=== PATIENT | female | born 1970 | race Caucasian/White ===

== ENCOUNTER → 2016-08-25 | Outpatient (CLI) | payer BC ==
[~2016-08-25] MED LIST: CEFD300C PO; DOCU100C37 PO; FERR-74 PO; HYDR-3816 PO; IBUP-1773 PO; SIME80TA16 PO; ZOLP5TAB PO
--- OUTSIDE RECORDS SUMMARY | 2016-08-25 08:25 | XMS REPORT | Continuity of Care Document ---
Author Author [facility] Organization [facility] Address Unknown Phone Unavailable Allergies Active Description Code Type Severity Reaction Onset Reported/Identified Relationship to Patient Clinical Status Yes No Known Drug Allergies [id number] Drug Allergy Unknown N/ A 10/09/2008 Medications Problems Date Dx Coded Attending Type Code Diagnosis Diagnosed By 07/18/2013 ALISON MOTA, AZEB Reilly Ot 473.9 07/18/2013 ALISON MOTA, AZEB Reilly Ot 780.4 07/18/2013 AZEB ROSAS MD Ot 782.0 10/12/2014 Ot V76.12 06/03/2015 KEHINDE MOTA, MONICO Ledezma Ot Z12.31 06/04/2015 KEHINDE MOTA, MONICO Ledezma Ot Z12.31 06/13/2015 MONICO BUSBY MD Ot Z12.31 06/17/2015 MONICO BUSBY MD Ot Z12.31 06/19/2015 FENECH DO, RONALD S Ot N92.0 07/02/2015 FENECH DO, RONALD S Ot N92.0 07/10/2015 FENECH DO, RONALD S Ot N92.0 07/23/2015 Ot V76.12 07/23/2015 MONICO BUSBY MD Ot Z12.31 08/10/2015 FENECH DO, RONALD S Ot D25.1 08/10/2015 FENECH DO, RONALD S Ot D25.9 08/10/2015 FENECH DO, RONALD S Ot N80.0 08/10/2015 FENECH DO, RONALD S Ot N83.0 08/10/2015 FENECH DO, RONALD S Ot N85.2 08/10/2015 FENECH DO, RONALD S Ot N92.0 08/26/2015 FENECH DO, RONALD S Ot D25.9 08/26/2015 FENECH DO, RONALD S Ot N93.9 08/26/2015 FENECH DO, RONALD S Ot Z01.812 08/26/2015 RONALD LAI DO Ot Z11.2 09/02/2015 MONICO BUSBY MD Ot Z12.31 09/02/2015 Ot V76.12 09/02/2015 MONICO BUSBY MD Ot Z12.31 09/23/2015 MONICO BUSBY MD Ot Z12.31 Procedures Results Encounters ACCT No. Visit Date/Time Discharge Status Pt. Type Provider Facility Loc./Unit Complaint [id number] 08/09/2015 06:15:00 2015 11:35:00 DIS Outpatient RONALD LAI DO [facility] SDC [id number] 05/30/2015 09:18:00 2014 23:59:59 CLS Outpatient MONICO BUSBY MD [facility] RAD [id number] 07/18/2013 10:55:00 2013 13:21:00 DIS Emergency AZEB ROSAS MD [facility] ER [id number] 08/05/2015 08:02:00 ACT Outpatient RONALD LAI DO [facility] PREOP [id number] 06/17/2015 13:03:00 ACT Outpatient RONALD LAI DO [facility] RAD [id number] 08/15/2012 09:03:00 Document Registration
--- NOTE | 2016-08-26 20:15 | Diagnostic Imaging Report ---
Bilateral screening mammogram The current study was also evaluated with a Computer Aided Detection (CAD) system. Indication: Screening. No current complaints stated on the questionnaire. COMPARISON: 06/26/15. FINDINGS: The breasts are composed of heterogeneously dense parenchyma which may decrease mammographic sensitivity. There are benign-appearing calcifications seen. Allowing for technique and positional differences, no suspicious change is seen. IMPRESSION: No significant change. ACR BI-RADS Category 2: Benign findings. Result letter will be mailed to the patient. Note: At least 10% of breast cancer is not imaged by mammography. Dictated by: Dictated on workstation # [id number]
== END ==
LOC: RAD 08:21
PROVIDERS: ATTEND Obstetrics & Gynecology
DX: Z12.31 Encounter for screening mammogram for malignant neoplasm of breast (principal)
CPT/HCPCS: 77067

== ENCOUNTER → 2017-09-24 | Outpatient (CLI) | payer BC ==
[~2017-09-24] MED LIST changes: -FERR-74 PO; +FERR325T18 PO; +HYDR-34 PO; -HYDR-3816 PO
--- NOTE | 2017-09-24 13:31 | Diagnostic Imaging Report ---
INDICATION: Routine screening. The current study was also evaluated with a Computer Aided Detection (CAD) system. Comparison is made with prior studies from 08/25/2016 and 05/30/2015. FINDINGS: Both breasts do show moderate parenchymal heterogeneity and increased density, limiting the sensitivity of mammography. There are scattered benign-appearing calcifications throughout both breasts. No discrete mass or malignant-appearing microcalcifications are seen. The axillae are unremarkable. IMPRESSION: No mammographic features suspicious for malignancy are identified. ACR BI-RADS Category 2: Benign findings. Result letter will be mailed to the patient. Note: At least 10% of breast cancer is not imaged by mammography. Dictated by: Dictated on workstation # [id number]
== END ==
LOC: RAD 09:50
PROVIDERS: ATTEND Obstetrics & Gynecology
DX: Z12.31 Encounter for screening mammogram for malignant neoplasm of breast (principal)
CPT/HCPCS: 77067

== ENCOUNTER → 2018-11-14 | Outpatient (CLI) | payer BC ==
--- NOTE | 2018-11-14 10:32 | Diagnostic Imaging Report ---
INDICATION: Routine screening. Comparison is made with prior mammograms 09/24/2017 and 08/25/2016. 2-D and 3-D bilateral screening mammography was performed with CAD. The current study was also evaluated with a Computer Aided Detection (CAD) system. FINDINGS: Both breasts remain heterogeneously dense, limiting the sensitivity of mammography. There are scattered benign-appearing calcifications bilaterally. No dominant mass or malignant-appearing microcalcifications are seen. Axillae are unremarkable. IMPRESSION: No mammographic features suspicious for malignancy are identified. ACR BI-RADS Category 2: Benign findings. Result letter will be mailed to the patient. Note: At least 10% of breast cancer is not imaged by mammography. Dictated by: Dictated on workstation # [id number]
== END ==
LOC: RAD 08:10
PROVIDERS: ATTEND Obstetrics & Gynecology
DX: Z12.31 Encounter for screening mammogram for malignant neoplasm of breast (principal)
CPT/HCPCS: 77067

== ENCOUNTER → 2019-11-22 | Outpatient (CLI) | payer BC ==
--- NOTE | 2019-11-22 13:23 | Diagnostic Imaging Report ---
INDICATION: Routine screening. COMPARISON: 11/14/2018 and 09/24/2017. TECHNIQUE: 2D and 3D bilateral screening mammography was performed with CAD. FINDINGS: Both breasts remain heterogeneously dense, limiting the sensitivity of mammography. There are scattered benign calcifications in both breasts. No dominant mass or malignant appearing microcalcifications are seen. The axillae are unremarkable. IMPRESSION: No mammographic features suspicious for malignancy are identified. ACR BI-RADS Category 2: Benign findings. Result letter will be mailed to the patient. Note: At least 10% of breast cancer is not imaged by mammography. Dictated by: Dictated on workstation # [id number]
== END ==
LOC: RAD 09:34
PROVIDERS: ATTEND Obstetrics & Gynecology
DX: Z12.31 Encounter for screening mammogram for malignant neoplasm of breast (principal)
CPT/HCPCS: 77063; 77067

== ENCOUNTER → 2021-01-13 | Outpatient (CLI) | payer BC ==
--- NOTE | 2021-01-13 12:26 | Diagnostic Imaging Report ---
Indication: 2-D and 3-D digital screening with CAD. COMPARISON: 10/2019, 10/2018 and 08/2017 FINDINGS: There are scattered fibroglandular densities in the breast with no mass or architectural distortion, spiculated lesion, suspicious calcifications or interval change is identified. IMPRESSION: Stable negative mammograms BI-RADS Category 1 ACR BI-RADS Category 1: Negative. Result letter will be mailed to the patient. Note: At least 10% of breast cancer is not imaged by mammography. Dictated by: Dictated on workstation # [id number]
== END ==
LOC: RAD 10:15
PROVIDERS: ATTEND Obstetrics & Gynecology
DX: Z12.31 Encounter for screening mammogram for malignant neoplasm of breast (principal)
CPT/HCPCS: 77063; 77067

== ENCOUNTER → 2022-05-14 | Outpatient (CLI) | payer BC ==
--- NOTE | 2022-05-14 14:59 | Diagnostic Imaging Report ---
Indication: Routine screening. Comparison is made with prior mammograms 01/13/2021 and 11/22/2019. 2-D and 3-D bilateral screening mammography was performed with CAD. Both breasts are heterogeneously dense, limiting the sensitivity of mammography. The parenchymal pattern is stable. No mass or malignant-appearing microcalcifications are seen. There are scattered benign calcifications. Axillae are unremarkable. IMPRESSION: BI-RADS Category 2 No mammographic features suspicious for malignancy are identified. ACR BI-RADS Category 2: Benign findings. Result letter will be mailed to the patient. Note: At least 10% of breast cancer is not imaged by mammography. Dictated by: Dictated on workstation # [id number]
== END ==
LOC: RAD 11:13
PROVIDERS: ATTEND Obstetrics & Gynecology
DX: Z12.31 Encounter for screening mammogram for malignant neoplasm of breast (principal)
CPT/HCPCS: 77063; 77067

== ENCOUNTER 2022-06-30 05:39 | Outpatient (CLI) | payer BC ==
[~2022-06-30] VITALS: Ht 162.6 cm; Wt 81.1 kg
[2022-07-02] MEDS ORDERED: ASCO100024 PO (10:06)
[2022-07-02] MEDS ORDERED: CHOL200074 PO (10:06)
[2022-07-02] MEDS ORDERED: ESTR0.9T PO (10:06)
== END 2022-07-02 10:29 | disposition home or self-care (01) ==
LOC: PREOP 05:39
PROVIDERS: ATTEND Surgery
DX: Z01.818 Encounter for other preprocedural examination (principal)

== ENCOUNTER 2022-07-06 08:28 | Day surgery (SDC) | payer BC ==
[~2022-07-06] VITALS: Ht 163 cm; Wt 81.1 kg
[~2022-07-06 08:28] MED LIST changes: +ASCO100024 PO; +CHOL200074 PO; +ESTR0.9T PO
[2022-07-06] MEDS ORDERED: LACTATED RINGERS 1,000 ML IV STA (08:30)
[2022-07-06 08:45] VITALS: BP 119/96
[2022-07-06] MEDS ORDERED: PROPOFOL INJECTION 50 ML IV ONE (09:41)
[2022-07-06 09:50] VITALS: BP 133/68
--- NOTE | 2022-07-06 09:51 | Progress Note-Post Operative ---
Post-Operative Progess Note Surgeon (s)/Flight Surveyor (s) Surgeon SEEMA GUZMAN DO Flight Surveyor: ADÁN Thacker Pre-Operative Diagnosis screening colon Post-Operative Diagnosis Int hemorrhoids Procedure & Operative Findings Date of Procedure 07/06/22 Procedure Performed/Findings Colonoscopy PROCEDURE NOTE: After informed consent was obtained, the patient was brought to the endoscopy suite, placed in bed in left lateral decubitus position. She was administered IV sedation by the [employer]LECTRO[employer]NER [employer] FINISHER who then monitored her vitals the entire time, heart rate, blood pressure and pulse ox and the scope was inserted, pushed all the way to about 150 cm and pushed into the cecum, took a picture of appendiceal orifice and noted the ileocecal valve. Then slowly withdrew the scope insufflating to look circumferentially at the alejandra starting in the cecum, up the ascending colon to the hepatic flexure, then down the transverse colon, splenic flexure, into the descending colon down in the sigmoid and then into the rectal vault and retroflexed the scope. Took picture of the internal hemorrhoids. The patient tolerated the procedure. She was recovered in endoscopy suite. Recommended for repeat colonoscopy in 10 years. Anesthesia Type IV sedation by [employer] FIN[employer]ER Estimated Blood Loss Estimated blood loss (mL): none Specimens/Packing Specimens Removed none SEEMA GUZMAN DO Jul 06, 2022 09:51
--- NOTE | 2022-07-06 09:52 | Endoscopy Discharge Instruct ---
Endo Procedure/Findings Findings 1.: Internal Hemorrhoids Discharge Instructions - Activity: You might feel a little sleepy until tomorrow. This is due to the me dicine you received to relax you. Until tomorrow, you should: NOT drive a car, operate machinery or power tools. NOT drink any alcoholic beverages. NOT make any important decisions or sign importortant papers. Do not return to work until tomorrow, unless otherwise instructed. Resume previous activities tomorrow. Diet: Start by taking liquids. If you tolerate liquids, advance to solid food. 1.: Colonscopy in 10 years Notify Physician - If you experience excessive bleeding, unusual abdominal pain, fever, or chest pain, contact your doctor immediately. SEEMA GUZMAN DO Jul 06, 2022 09:52
[2022-07-06 09:55] VITALS: BP 141/73
[2022-07-06 10:00] VITALS: BP 149/84
[2022-07-06 10:35] VITALS: BP 149/84
--- NOTE | 2022-07-06 12:24 | Anesthesia-General Post-Op ---
MAC Patient Condition Mental Status/LOC: Same as Preop Cardiovascular: Satisfactory Nausea/Vomiting: Absent Respiratory: Satisfactory Pain: Controlled Complications: Absent Post Op Complications Complications None Follow Up Care/Instructions Patient Instructions None needed. Anesthesiology Discharge Order Discharge Order Patient is doing well, no complaints, stable vital signs, no apparent adverse anesthesia problems. No complications reported per nursing. LORETTA MORENO CRNA Jul 06, 2022 12:24
== END 2022-07-06 10:38 | disposition home or self-care (01) ==
LOC: ENDO 08:28
PROVIDERS: ATTEND Surgery
DX: Z12.11 Encounter for screening for malignant neoplasm of colon (principal); K64.8 Other hemorrhoids; E66.9 Obesity, unspecified; Z87.891 Personal history of nicotine dependence; Z68.30 Body mass index [BMI] 30.0-30.9, adult

== ENCOUNTER → 2023-05-26 | Outpatient (CLI) | payer BC ==
--- NOTE | 2023-05-26 12:49 | Diagnostic Imaging Report ---
INDICATION: Routine screening. COMPARISON: 05/14/2022 and 01/13/2021. TECHNIQUE: 2D and 3D bilateral screening mammography was performed with CAD. FINDINGS: Both breasts are heterogeneously dense, limiting the sensitivity of mammography. The parenchymal pattern is stable. No mass or malignant-appearing microcalcifications are identified. There are scattered benign calcifications. The axillae are unremarkable. IMPRESSION: No mammographic features suspicious for malignancy are identified. ACR BI-RADS Category 2: Benign findings. Result letter will be mailed to the patient. Note: At least 10% of breast cancer is not imaged by mammography. Dictated by: Dictated on workstation # [id number]
== END ==
LOC: RAD 08:15
PROVIDERS: ATTEND Obstetrics & Gynecology
DX: Z12.31 Encounter for screening mammogram for malignant neoplasm of breast (principal)
CPT/HCPCS: 77063; 77067